=== PATIENT | male | born 1980 | race Caucasian/White ===

== ENCOUNTER → 2016-12-29 11:23 | Outpatient (CLI) | payer MEDICAID ==
[2015-03-06 06:19] VITALS: BMI 29.3
[~2016-12-29 11:23] MED LIST: AMINOCAPROIC A500 MG PO; HYDROCODONE-APA1 TAB PO; PRILOSEC20 MG PO; VALIUM10 MG PO
== END | disposition home or self-care (01) ==
LOC: D.RT 11:00
DX: R06.02 Shortness of breath (principal)